=== PATIENT | male | born 1970 | race Caucasian/White ===

== ENCOUNTER 2019-03-07 14:05 | Observation (INO) | payer MEDICAID, OTHER ==
[~2019-03-07] VITALS: Ht 175.3 cm; Wt 88.0 kg
[2019-03-07 14:27] LABS: HEMOGLOBIN 16.4 g/dl (14.0-17.9); MEAN CORPUSCULAR HEMOGLOBIN 31.4 PG (27.0-31.0); RED BLOOD COUNT 5.22 X10'6 (4.70-6.10)
[2019-03-07 14:29] LABS: BASOPHILS % (AUTO) 0.3 % (0-1); EOSINOPHILS # (AUTO) 0.1 X10'3 (0-0.9); EOSINOPHILS % (AUTO) 0.4 % (0-6); HEMATOCRIT 48.5 % (42.0-52.0); LYMPHOCYTES # (AUTO) 2.5 X10'3 (1.1-4.8); LYMPHOCYTES % (AUTO) 20.9 % (21-51); MEAN CORPUSCULAR HGB CONC 33.8 g/dL (33.0-36.5); MEAN CORPUSCULAR VOLUME 92.9 FL (78-98); MEAN PLATELET VOLUME 7.8 FL (7.4-10.4); MONOCYTES % (AUTO) 8.3 % (2-12); NEUTROPHILS # (AUTO) 8.5 X10'3 (1.8-7.7); NEUTROPHILS % (AUTO) 70.1 % (42-75); PLATELET COUNT 297 X10'3 (140-440); WHITE BLOOD COUNT 12.1 X10'3 (4.5-11.0)
--- NOTE | 2019-03-07 14:32 | NUR ---
PT STATES APROX 2 WEEKS AGO HE WAS LIFTING SOMTHING OVER HIS HEAD AND IT FELL ON HIS HEAD. STARTING THIS WEEK HE HAS BEEN NAUSEA, DIZZY, AND "SEEING BLACK DOTS"Sean GOSS NOTIFIED
[2019-03-07 14:41] LABS: PARTIAL THROMBOPLASTIN TIME 26 SECONDS (22-32)
[2019-03-07 14:43] LABS: ALANINE AMINOTRANSFERASE 44 U/L (12-78); ALBUMIN 4.4 G/DL (3.4-5.0); ALBUMIN/GLOBULIN RATIO 1.1 (1.1-1.5); ALKALINE PHOSPHATASE 85 IU/L (46-116); ANION GAP 12 (8-16); ASPARTATE AMINO TRANSFERASE 21 U/L (10-37); BILIRUBIN,TOTAL 0.6 MG/DL (0.1-1.0); BLOOD UREA NITROGEN 33 MG/DL (7-18); BUN/CREATININE RATIO 13.1 (5.4-32.0); CALCIUM 10.5 MG/DL (8.5-10.1); CHLORIDE 104 MMOL/L (99-107); CREATININE 2.51 MG/DL (0.60-1.10); GLUCOSE 120 MG/DL (70-104); POTASSIUM 4.2 MMOL/L (3.5-5.1); SODIUM 138 MMOL/L (135-145); TOTAL CARBON DIOXIDE 22.4 MMOL/L (24-32); TOTAL PROTEIN 8.5 G/DL (6.4-8.2); eGFR 28 ML/MIN
[2019-03-07] MEDS ORDERED: normal saline 1000ML IV soln IVB ONE (15:00)
[2019-03-07] MEDS ORDERED: enoxaparin 100mg/ml syringe SUBCUT ONE (15:05)
[2019-03-07] MEDS ORDERED: nitroGLYCERIN 0.4mg SUBLingual tab SL PRN ×2 (15:05→15:45)
[2019-03-07] MEDS ORDERED: aspirin 325mg tablet PO ONE (15:05)
--- NOTE | 2019-03-07 15:22 | NUR ---
PT CO CHEST PAIN BEFORE NITRO 09/30 NOW 5 MINS AFTER NITRO PT DENIES ANY PAIN.PT MEDS PRESCRIBED BY MD ADMININSTERED .VITALS STABLE HR 91,BP 118/69,[id number] ON RA,R 16.
[2019-03-07 15:31] LABS: CREATINE KINASE 370 U/L (39-308)
[2019-03-07] MEDS ORDERED: regadenoson 0.4mg/5ml syringe IV ONE (15:45)
[2019-03-07] MEDS ORDERED: aminophylline 250mg/10ml inj. IV PRN (15:45)
[2019-03-07] MEDS ORDERED: magnesium hydroxide 30ml (MOM) UD suspension PO PRN (15:45)
[2019-03-07] MEDS ORDERED: mag hydrox/Alum hydrox/simeth 30ml oral suspension PO PRN (15:45)
[2019-03-07] MEDS ORDERED: metoprolol tartrate 1mg/ml inj IV PRN (15:45)
[2019-03-07] MEDS ORDERED: ondansetron/PF 4mg/2ml inj IV PRN (15:45)
[2019-03-07] MEDS ORDERED: acetaminophen 325mg tablet PO PRN ×2 (15:45)
[2019-03-07] MEDS ORDERED: NO HOME MEDS (15:49)
--- NOTE | 2019-03-07 17:07 | NUR ---
CALLED FOR REPORT,NURSE IN MIDDLE OF GIVING SHIFT,THEY WILL CALL BACK IN FEW MINS.
--- NOTE | 2019-03-07 17:21 | NUR ---
[facility] CALLED STATES PT TO BE NPO AFTER MIDNIGHT STRESS TEST TO BE DONE TOMORROW APPROX 0730, NO CAFFEINE UNTIL PROCEDURE.
--- NOTE | 2019-03-07 17:56 | NUR ---
Patient in room . I have received report from Yoshi VUONG and had the opportunity to ask questions and assume patient care.
--- NOTE | 2019-03-07 18:00 | NUR ---
Settled patient in room B/P 155/101 Dr Calix paged
[2019-03-07] MEDS: normal saline 1000ml 1,000 ML IV SCH ×2 (18:25→19:11)
--- NOTE | 2019-03-07 18:35 | NUR ---
Problems reprioritized. Patient report given, questions answered & plan of care reviewed with Prudence RN.
--- NOTE | 2019-03-07 19:09 | NUR ---
Patient in room [facility]. I have received report from Cathy VUONG and had the opportunity to ask questions and assume patient care.
[2019-03-07] MEDS ORDERED: temazepam 15mg capsule PO PRN (21:00)
[2019-03-08] VITALS (18 sets, daily range): BP systolic 110–175; BP diastolic 70–100
[2019-03-08 02:40] LABS: BASOPHILS % (AUTO) 0.5 % (0-1); EOSINOPHILS # (AUTO) 0.1 X10'3 (0-0.9); EOSINOPHILS % (AUTO) 1.4 % (0-6); HEMATOCRIT 43.9 % (42.0-52.0); HEMOGLOBIN 14.6 g/dl (14.0-17.9); LYMPHOCYTES # (AUTO) 3.2 X10'3 (1.1-4.8); LYMPHOCYTES % (AUTO) 37.6 % (21-51); MEAN CORPUSCULAR HEMOGLOBIN 31.6 PG (27.0-31.0); MEAN CORPUSCULAR HGB CONC 33.2 g/dL (33.0-36.5); MEAN CORPUSCULAR VOLUME 95.1 FL (78-98); MONOCYTES # (AUTO) 0.7 X10'3 (0-0.9); MONOCYTES % (AUTO) 8.5 % (2-12); NEUTROPHILS # (AUTO) 4.4 X10'3 (1.8-7.7); PLATELET COUNT 245 X10'3 (140-440); RED BLOOD COUNT 4.61 X10'6 (4.70-6.10); WHITE BLOOD COUNT 8.5 X10'3 (4.5-11.0)
[2019-03-08 02:49] LABS: ALANINE AMINOTRANSFERASE 37 U/L (12-78); ALBUMIN 3.2 G/DL (3.4-5.0); ALBUMIN/GLOBULIN RATIO 0.9 (1.1-1.5); ALKALINE PHOSPHATASE 67 IU/L (46-116); ANION GAP 7 (8-16); ASPARTATE AMINO TRANSFERASE 16 U/L (10-37); BILIRUBIN,TOTAL 0.2 MG/DL (0.1-1.0); BLOOD UREA NITROGEN 26 MG/DL (7-18); BUN/CREATININE RATIO 16.7 (5.4-32.0); CALCIUM 8.3 MG/DL (8.5-10.1); CHLORIDE 109 MMOL/L (99-107); CREATININE 1.56 MG/DL (0.60-1.10); GLUCOSE 87 MG/DL (70-104); POTASSIUM 3.9 MMOL/L (3.5-5.1); SODIUM 142 MMOL/L (135-145); TOTAL CARBON DIOXIDE 26.4 MMOL/L (24-32); TOTAL PROTEIN 6.6 G/DL (6.4-8.2); eGFR 48 ML/MIN
[2019-03-08] MEDS: normal saline 1000ml 1,000 ML IV SCH ×2 (05:45→17:44)
--- NOTE | 2019-03-08 06:40 | NUR ---
Patient in room [facility]. I have received report from CAROLANN SCHWAB and had the opportunity to ask questions and assume patient care.
--- NOTE | 2019-03-08 08:57 | NUR ---
patient down to beth scan with x1 staff.
--- NOTE | 2019-03-08 10:33 | NUR ---
patient back to room 350a.
[2019-03-08] MEDS: aspirin 81mg tablet.DR PO SCH (11:50)
[2019-03-08] MEDS: lisinopril 5mg tablet PO SCH (13:43)
[2019-03-08] MEDS ORDERED: LORazepam 1 MG tablet PO ONE (14:05)
[2019-03-08] MEDS ORDERED: diphenhydrAMINE 50 mg/ml inj IV ONE (14:05)
[2019-03-08] MEDS ORDERED: midazolam 2 mg/2 ml injection ONE ×2 (15:35→15:48)
[2019-03-08] MEDS ORDERED: fentaNYL/PF 50MCG/1 ML 2ML syringe ONE ×2 (15:36→15:48)
[2019-03-08] MEDS ORDERED: LIDOcaine 1% (10mg/ml)w/preservative injection 20ml MDV ONE (15:36)
[2019-03-08] MEDS ORDERED: iohexol 350MG/ML 100ml bottle IV ONE (15:36)
[2019-03-08] MEDS ORDERED: iohexol 350 MG/ML 50ML vial IV ONE (15:36)
--- NOTE | 2019-03-08 16:35 | NUR ---
angioseal to right groin cdi. groin soft, no hematoma noted. educated patient importance of lying flat on back for x6 hours and not lifting head more than 10 degrees.
[2019-03-08] MEDS ORDERED: proCHLORperazine 10 MG/2 ml inj IV PRN (17:55)
[2019-03-08] MEDS ORDERED: OXAZEpam 15mg capsule PO PRN (17:55)
[2019-03-08] MEDS ORDERED: ondansetron/PF 4mg/2ml inj IV PRN (17:55)
[2019-03-08] MEDS ORDERED: HYDROcodone/acetaminophen 10/325mg tab PO PRN (17:55)
[2019-03-08] MEDS ORDERED: nitroGLYCERIN 0.4mg SUBLingual tab SL PRN (17:55)
[2019-03-08] MEDS ORDERED: HYDROcodone/acetaminophen 5mg/325mg tablet PO PRN (17:55)
[2019-03-08] MEDS ORDERED: normal saline 1000ml 1,000 ML IV ONE (17:55)
--- NOTE | 2019-03-08 18:30 | NUR ---
Patient in room [facility]. I have received report from Hiren VUONG and had the opportunity to ask questions and assume patient care. Pt continues to lie flat, no s/s of distress. urinal given for voiding.
--- NOTE | 2019-03-08 18:54 | NUR ---
Problems reprioritized. Patient report given, questions answered & plan of care reviewed with CAROLANN SPANN.
[2019-03-08 19:29] LABS: CLARITY,URINE CLEAR (Clear); COLOR,URINE YELLOW (Yellow); GLUCOSE, URINE NEGATIVE (Neg); KETONES,URINE 15 mg/dl (Neg); LEUKOCYTE ESTERASE ,URINE NEGATIVE (Neg); NITRITES, URINE NEGATIVE (Neg); OCCULT BLOOD,URINE NEGATIVE (Neg); PH,URINE 5.5 (4.8-8.0); PROTEIN,URINE NEGATIVE (Neg); UROBILINOGEN,URINE 0.2 E.U/dL (0.2-1.0)
[2019-03-08 19:34] LABS: UA COLLECTION TYPE NON-SPECIFIED
[2019-03-08] MEDS: carVEDilol 3.125mg tablet PO SCH (19:43)
[2019-03-08 20:13] LABS: URINE AMPHETAMINE SCREEN NEGATIVE (Neg); URINE BARBITUATE SCREEN NEGATIVE (Neg); URINE BENZODIAZEPINES SCREEN NEGATIVE (Neg); URINE CANNABINOID SCREEN POSITIVE (Neg); URINE COCAINE SCREEN NEGATIVE (Neg); URINE METHADONE SCREEN NEGATIVE (Neg); URINE OPIATE SCREEN NEGATIVE (Neg); URINE PHENCYCLIDINE SCREEN NEGATIVE (Neg)
[2019-03-09] VITALS: BP 141/78
[2019-03-09 02:27] VITALS: BP 140/79
[2019-03-09 06:15] LABS: BASOPHILS % (AUTO) 0.5 % (0-1); EOSINOPHILS # (AUTO) 0.1 X10'3 (0-0.9); EOSINOPHILS % (AUTO) 1.4 % (0-6); HEMATOCRIT 40.4 % (42.0-52.0); HEMOGLOBIN 13.4 g/dl (14.0-17.9); LYMPHOCYTES # (AUTO) 2.3 X10'3 (1.1-4.8); LYMPHOCYTES % (AUTO) 29.1 % (21-51); MEAN CORPUSCULAR HEMOGLOBIN 32.1 PG (27.0-31.0); MEAN CORPUSCULAR HGB CONC 33.3 g/dL (33.0-36.5); MEAN CORPUSCULAR VOLUME 96.5 FL (78-98); MEAN PLATELET VOLUME 9.1 FL (7.4-10.4); MONOCYTES # (AUTO) 0.6 X10'3 (0-0.9); MONOCYTES % (AUTO) 7.6 % (2-12); NEUTROPHILS # (AUTO) 4.8 X10'3 (1.8-7.7); NEUTROPHILS % (AUTO) 61.4 % (42-75); PLATELET COUNT 216 X10'3 (140-440); RED BLOOD COUNT 4.18 X10'6 (4.70-6.10); WHITE BLOOD COUNT 7.8 X10'3 (4.5-11.0)
--- NOTE | 2019-03-09 06:30 | NUR ---
Problems reprioritized. Patient report given, questions answered & plan of care reviewed with Yulissa VUONG.
[2019-03-09 06:34] LABS: ALANINE AMINOTRANSFERASE 30 U/L (12-78); ALBUMIN 2.9 G/DL (3.4-5.0); ALBUMIN/GLOBULIN RATIO 0.9 (1.1-1.5); ALKALINE PHOSPHATASE 58 IU/L (46-116); ANION GAP 7 (8-16); ASPARTATE AMINO TRANSFERASE 14 U/L (10-37); BILIRUBIN,TOTAL 0.2 MG/DL (0.1-1.0); BLOOD UREA NITROGEN 19 MG/DL (7-18); BUN/CREATININE RATIO 15.2 (5.4-32.0); CALCIUM 7.8 MG/DL (8.5-10.1); CHLORIDE 112 MMOL/L (99-107); CHOL/HDL RATIO 5.5 (0.00-4.99); CHOLESTEROL 186 MG/DL (0-200); CREATININE 1.25 MG/DL (0.60-1.10); GLUCOSE 95 MG/DL (70-104); HDL CHOLESTEROL 34 MG/DL (35-60); LDL CHOLESTEROL 126 MG/DL (50-100); POTASSIUM 4.8 MMOL/L (3.5-5.1); SODIUM 143 MMOL/L (135-145); TOTAL CARBON DIOXIDE 24.1 MMOL/L (24-32); TRIGLYCERIDES 146 MG/DL (20-135); eGFR 62 ML/MIN
[2019-03-09 07:00] VITALS: BP 137/78
[2019-03-09] MEDS: aspirin 81mg tablet.DR PO SCH (07:38)
[2019-03-09] MEDS: carVEDilol 3.125mg tablet PO SCH (07:38)
[2019-03-09] MEDS: lisinopril 5mg tablet PO SCH (07:38)
[2019-03-09 08:12] LABS: IMMUNOGLOBULIN A, QN, SERUM 271 mg/dL (90-386); IMMUNOGLOBULIN G, QN, SERUM 991 mg/dL (700-1600); IMMUNOGLOBULIN M, QN, SERUM 96 mg/dL (20-172)
[2019-03-09] MEDS ORDERED: COR3.125T PO (08:46)
[2019-03-09] MEDS ORDERED: ASPI-1071 PO (08:46)
[2019-03-09] MEDS ORDERED: LISI-642 PO (08:46)
--- NOTE | 2019-03-09 09:55 | NUR ---
PT DISCHARGED IN STABLE CONDITION. LEFT FACILITY IN PRIVATE VEHICLE WITH FRIEND. IV DC CANULA INTACT. ALL BELONGINGS IN HAND. FOLLOW UP INSTRUCTIONS GIVEN, ALL QUESTIONS ANSWERED. Addendum: 03/09/19 at 0956 by Lucy Valente RN Amended: Links added.
[2019-03-11 05:08] LABS: A/G RATIO 1.3 (0.7-1.7); ALBUMIN 3.9 g/dL (2.9-4.4); GAMMA GLOBULIN 0.9 g/dL (0.4-1.8); GLOBULIN, TOTAL 2.9 g/dL (2.2-3.9); M-SPIKE Not Observed g/dL (Not Observed); PROTEIN, TOTAL, SERUM 6.8 g/dL (6.0-8.5)
== END 2019-03-09 10:06 | disposition home or self-care (01) ==
LOC: ER 14:06 → SUR 3N 18:15
PROVIDERS: ADMIT Hospitalist; ATTEND Hospitalist
DX: R07.89 Other chest pain (principal); R42 Dizziness and giddiness; E83.52 Hypercalcemia; I10 Essential (primary) hypertension
CPT/HCPCS: 36415; 71045; 76775; 78452; 80053; 80061; 80305; 81003; 82550; 82784; 84155; 84165; 84484; 85025; 85610; 85730; 86334; 86335; 87081; 93005; 93017; 93306; 93458; 96361; 96372; 96374; 99284; A9500; C1769; G0378; J1200; J1644; J2001; J2250; J2785; J3010; J7030; Q9967; 99152; 99153; A4620; A6258; C1760; J1650